=== PATIENT | male | born 1975 | race Caucasian/White ===

== ENCOUNTER 2016-06-22 07:12 | Emergency (ER) | payer OTHER ==
[~2016-06-22] VITALS: Ht 182.9 cm; Wt 111.1 kg
[~2016-06-22 07:12] MED LIST: AMBIEN10 MG PO; AMLODIPINE BESYL5 MG PO; CHANTIX1 MG PO; CLEOCIN300 MG PO; CLONAZEPAM0.5 MG PO; CYCLOBENZAPRINE5 MG PO; DESYREL100 MG PO; FLEXERIL5 MG PO; IBUPROFEN800 MG PO; KLONOPIN1 MG PO; LEVOTHYROXINE50 MCG PO; LEVOXYL50 MCG PO; LOFIBRA54 MG PO; LYRICA100 MG PO; LYRICA50 MG PO; MELOXICAM15 MG PO; MOBIC7.5 MG PO; MORPHINE SULFAT15 M1 PO; MS CONTIN,ORAMO15 M1 PO; NAPROXEN500 MG PO; OMEPRAZOLE20 MG PO; PRAVACHOL20 MG PO; PRAVASTATIN SOD10 MG PO; PRILOSEC40 MG PO; PROVENTIL,200 INHALA IH; RANITIDINE HCL150 MG PO; SERTRALINE HCL50 MG PO; SYMBICORT60 INHALAT IH; ULTRAM50 MG PO; ZITHROMAX Z-PA250 MG PO; ZOLOFT100 MG PO
[2016-06-22] MEDS ORDERED: VIGAMOX 0.60 DROP/3 LEFT EYE (07:59)
[2016-06-22] MEDS ORDERED: ACULAR 0.5100 DROP/5 LEFT EYE (07:59)
[2016-06-22 08:05] VITALS: BP 143/87
== END 2016-06-22 08:06 | disposition home or self-care (01) ==
LOC: EME 07:12
DX: S05.02XA Injury of conjunctiva and corneal abrasion without foreign body, left eye, initial encounter (principal); J45.909 Unspecified asthma, uncomplicated; E78.5 Hyperlipidemia, unspecified; F17.200 Nicotine dependence, unspecified, uncomplicated
CPT/HCPCS: 99281; 99284

== ENCOUNTER 2017-09-27 23:03 | Emergency (ER) | payer OTHER ==
[~2017-09-27] VITALS: Ht 182.9 cm; Wt 106.5 kg
[~2017-09-27 23:03] MED LIST changes: +ACULAR 0.5100 DROP/5 LEFT EYE; +VIGAMOX 0.60 DROP/3 LEFT EYE
[2017-09-28] MEDS ORDERED: COUGH RELI15 MG/5 ML PO (01:04)
[2017-09-28] MEDS ORDERED: XYLOCAINE VISC100 ML PO (01:04)
[2017-09-28 01:14] VITALS: BP 147/98
== END 2017-09-28 01:16 | disposition home or self-care (01) ==
LOC: EME 23:03
DX: J02.9 Acute pharyngitis, unspecified (principal); R05 Cough; J45.909 Unspecified asthma, uncomplicated; E78.5 Hyperlipidemia, unspecified; Z88.0 Allergy status to penicillin; F17.200 Nicotine dependence, unspecified, uncomplicated
CPT/HCPCS: 70360; 71046; 99281; 99284